=== PATIENT | male | born 1960 | race Caucasian/White ===

== ENCOUNTER 2017-01-17 14:31 | Emergency (ER) | payer OTHER ==
[2017-01-17 14:43] VITALS: RESP 16; TEMP 97.4
[2017-01-17] MEDS ORDERED: KETOROLAC 15 MG/1 ML VIAL IVP ONE (14:58)
[2017-01-17] MEDS ORDERED: NORMAL SALINE 10 ML SYRINGE FLUSH IVP PRN (15:00)
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
[2017-01-17 15:16] LABS: BASOPHILS # (AUTO) 0.07 10*3/UL; BASOPHILS % (AUTO) 1.6 % (0-1); EOSINOPHILS # (AUTO) 0.09 10*3/UL; EOSINOPHILS % (AUTO) 2.1 % (0-8); HEMATOCRIT 44.8 % (42.0-52.0); HEMOGLOBIN 15.5 g/dL (14.0-18.0); MEAN CORPUSCULAR HGB CONC 34.6 g/dL (33-37); MEAN CORPUSCULAR VOLUME 92.6 FL (80-90); MEAN PLATELET VOLUME 9.9 FL (7.4-12.2); MONOCYTES # (AUTO) 0.42 10*3/UL (0.3-0.8); MONOCYTES % (AUTO) 9.6 % (5-15); NEUTROPHILS # (AUTO) 2.59 10*3/UL; NEUTROPHILS % (AUTO) 59.1 % (50-80); RED BLOOD COUNT 4.84 10^6/uL (4.70-6.10)
[2017-01-17 15:18] LABS: PLATELET MORPHOLOGY COMMENT NORMAL MORPHOLOGY (NORM); RBC MORPHOLOGY COMMENT NORMAL MORPHOLOGY (NORM); WBC MORPHOLOGY COMMENT NORMAL MORPHOLOGY (NORM)
[2017-01-17 15:29] LABS: URIC ACID 5.9 mg/dl (3.8-8.5)
[2017-01-17 15:33] LABS: C-REACTIVE PROTEIN < 0.5 mg/dL (0.0-0.9)
--- NOTE | 2017-01-17 23:52 | DI ---
XR KNEE 3 VW,01/17/2017 2:58 PM: Clinical History: Left knee pain Previous Exam: None at this facility. Findings: 3 views the left knee are obtained, and demonstrate anatomic alignment without fractures. Surrounding soft tissues are unremarkable. The anterior and medial compartments demonstrate mild loss of joint s pace with osteophyte formation. Surrounding soft tissues are unremarkable. Impression: Mild degenerative changes of the left knee otherwise unremarkable.
== END 2017-01-17 16:30 | disposition home or self-care (01) ==
LOC: ER 14:31
DX: M17.12 Unilateral primary osteoarthritis, left knee (principal); R22.43 Localized swelling, mass and lump, lower limb, bilateral; M25.562 Pain in left knee
CPT/HCPCS: 73562; 84550; 85025; 86140; 96374; 99283; J1885

== ENCOUNTER 2017-02-02 13:12 | Emergency (ER) | payer OTHER ==
[2017-02-02] MEDS ORDERED: KETOROLAC 60 MG/2 ML VIAL IM ONE (13:29)
[2017-02-02 13:58] VITALS: RESP 18; TEMP 96.3
--- NOTE | 2017-02-02 14:01 | DI ---
PA /LATERAL CHEST X-RAY, 02/02/2017 1:28 PM : Clinical History: Right lower chest wall pain. Previous Exam: None at this facility. There is no acute soft tissue or bony abnormality. Heart size is normal. Lungs are clear. Mediastinal structures are normal. There are no pulmonary nodules. Reading: Normal chest x-ray.
[2017-02-02 14:24] LABS: BILIRUBIN,URINE NEGATIVE (NEG); COLOR,URINE YELLOW; GLUCOSE, URINE (UA) NEGATIVE (NEG); NITRATE,URINE NEGATIVE (NEG); OCCULT BLOOD,URINE NEGATIVE (NEG); PROTEIN,URINE NEGATIVE (NEG)
[2017-02-02 14:26] LABS: CLARITY,URINE CLEAR (CLEAR)
[2017-02-02 14:27] LABS: URINE SAMPLE TYPE VOIDED SPECIMEN
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
== END 2017-02-02 15:10 | disposition home or self-care (01) ==
LOC: ER 13:12
DX: M54.89 Other dorsalgia (principal); R07.89 Other chest pain
CPT/HCPCS: 71020; 81003; 96372; 99283 ×2; J1885; J2360